=== PATIENT | female | born 1955 ===

== ENCOUNTER 2020-07-15 08:26 | Day surgery (SDC) | payer MEDICARE ==
[2020-07-15 10:45] LABS: Performing Lab VERACYTE; Test Name FNA
[2020-07-18 11:54] LABS: Result SEE PATHOTH RESULTS
== END 2020-07-15 22:46 | disposition home or self-care (01) ==
LOC: US 08:26
PROVIDERS: Physician Assistant Medical
DX: E04.2 Nontoxic multinodular goiter (principal)
CPT/HCPCS: 10005

== ENCOUNTER 2020-09-17 07:41 | Day surgery (SDC) | payer MEDICARE ==
[~2020-09-17] VITALS: Ht 157.5 cm; Wt 71.0 kg
[~2020-09-17 07:41] MED LIST: Aspir 8181 MG PO; CALCIUM CIT 311 EACH PO; Crestor20 MG PO; FARXIGA5 MG PO; GEMF600 PO; LOSARTAN POTASS50 M1 PO; METF500 PO; Nitrostat0.3 MG PO; OMEP20ER PO
--- NOTE | 2020-09-17 09:48 | NUR ---
09/17/20 0948 Idania Ramirez V PROCEDURE ABORTED, COULD NOT REACH CECUM.
--- NOTE | 2020-09-17 10:32 | NUR ---
09/17/20 [address] N[place] PATIENT NEEDS SCHEDULED FOR BARIUM ENEMA DUE TO INCOMPLETE COLONOSCOPY. HE WOULD PREFER THIS BE DONE TODAY SINCE THE PATIENT IS CLEANED OUT AND READY. PHONE CALL TO [facility] SCHEDULING AND ALL INFO GIVEN, AWAITING A CALL BACK
== END 2020-09-17 10:11 | disposition home or self-care (01) ==
LOC: ORSCSDS 07:41
PROVIDERS: Surgery
PROC: 0DJ08ZZ Inspection of Upper Intestinal Tract, Via Natural or Artificial Opening Endoscopic (ICD-10-PCS; principal; 2020-09-17 09:00)
PROC: 0DJD8ZZ Inspection of Lower Intestinal Tract, Via Natural or Artificial Opening Endoscopic (ICD-10-PCS; principal; 2020-09-17 09:00)
DX: K21.9 Gastro-esophageal reflux disease without esophagitis (principal); Z12.11 Encounter for screening for malignant neoplasm of colon; K44.9 Diaphragmatic hernia without obstruction or gangrene; E78.5 Hyperlipidemia, unspecified; E11.9 Type 2 diabetes mellitus without complications; I10 Essential (primary) hypertension; I25.10 Atherosclerotic heart disease of native coronary artery without angina pectoris; Z79.82 Long term (current) use of aspirin; Z87.891 Personal history of nicotine dependence; Z79.899 Other long term (current) drug therapy; Z79.84 Long term (current) use of oral hypoglycemic drugs
CPT/HCPCS: 82947; J2704; J7120

== ENCOUNTER 2022-10-11 14:32 | Emergency (ER) | payer MEDICARE ==
[2022-10-11] MEDS ORDERED: Norco 5-325 Ta1 EACH PO (16:32)
== END 2022-10-11 16:50 | disposition home or self-care (01) ==
DX: S13.9XXA Sprain of joints and ligaments of unspecified parts of neck, initial encounter (principal); S39.012A Strain of muscle, fascia and tendon of lower back, initial encounter; S52.501A Unspecified fracture of the lower end of right radius, initial encounter for closed fracture; W17.89XA Other fall from one level to another, initial encounter; Z79.82 Long term (current) use of aspirin; Z79.899 Other long term (current) drug therapy; Z79.84 Long term (current) use of oral hypoglycemic drugs; Z88.5 Allergy status to narcotic agent; Z87.891 Personal history of nicotine dependence